=== PATIENT | female | born 1980 | race American Indian/Alaskan Native ===

== ENCOUNTER 2018-09-30 10:56 | Emergency (ER) | payer BC ==
--- NOTE | 2018-09-30 11:23 | Emergency Department Report ---
ED Female HPI - General Chief complaint: Urogenital-Female Stated complaint: 8WKS /SPOTTING Time Seen by Provider: 09/30/18 11:17 Source: patient, family Mode of arrival: Ambulatory Limitations: Language Barrier - History of Present Illness Initial comments: PT IS A 39 YO WOMAN WHO HAD A POS HOME PREG TEST NOW WITH VAGINAL BLEEDING. LMP WAS 11-23 TREATED RECENTLY FOR UTI MD Complaint: vaginal bleeding -: Sudden Are you Now?: Yes Associated Symptoms: vaginal bleeding - Related Data Sexually active: Yes Previous Rx's Medication Instructions Recorded Last Taken Type Polyethylene Glycol 3350 [Miralax 17 gm PO QDAY 7 Days #7 packet 07/11/18 Unknown Rx 3350] Allergies Allergy/AdvReac Type Severity Reaction Status Date / Time No Known Allergies Allergy Unverified 07/11/18 11:17 ED Review of Systems ROS: Stated complaint: 8WKS /SPOTTING Other details as noted in HPI Comment: All other systems reviewed and negative Constitutional: denies: chills Eyes: denies: eye pain ENT: denies: ear pain Respiratory: denies: cough Cardiovascular: denies: palpitations Endocrine: denies: excessive sweating Gastrointestinal: as per HPI, nausea. denies: abdominal pain, vomiting Genitourinary: as per HPI, abnormal menses. denies: urgency, dysuria, frequency, hematuria, discharge Musculoskeletal: denies: as per HPI, back pain Skin: denies: rash Neurological: denies: headache Psychiatric: denies: anxiety Hematological/Lymphatic: denies: easy bleeding ED Past Medical Hx - Past Medical History Previous Medical History?: Yes Hx Hypertension: Yes (hx, but no longer has per pt) - Surgical History Past Surgical History?: No - Family History Family history: no significant - Social History Smoking Status: Never Smoker Substance Use Type: None - Medications Home Medications: Home Medications Medication Instructions Recorded Confirmed Last Taken Type Polyethylene Glycol 3350 [Miralax 17 gm PO QDAY 7 Days #7 packet 07/11/18 Unknown Rx 3350] ED Physical Exam - General Limitations: Language Barrier General appearance: alert - Head Head exam: Present: atraumatic - Eye Eye exam: Present: normal appearance, PERRL Pupils: Present: normal accommodation - ENT ENT exam: Present: mucous membranes moist - Neck Neck exam: Present: normal inspection, full ROM - Respiratory Respiratory exam: Present: normal lung sounds bilaterally - Cardiovascular Cardiovascular Exam: Present: regular rate - GI/Abdominal GI/Abdominal exam: Present: soft, normal bowel sounds - Rectal Rectal exam: Present: deferred - Extremities Exam Extremities exam: Present: normal inspection, full ROM - Back Exam Back exam: Present: normal inspection. Absent: CVA tenderness (R), CVA tenderness (L) - Neurological Exam Neurological exam: Present: alert, oriented X3 - Psychiatric Psychiatric exam: Present: normal affect, normal mood - Skin Skin exam: Present: warm, dry, intact ED Course Vital Signs 09/30/18 09/30/18 11:00 14:23 Temperature 98.9 F 98.2 F Pulse Rate 78 82 Respiratory 18 16 Rate Blood Pressure 110/60 Blood Pressure 114/72 [Right] O2 Sat by Pulse 100 100 Oximetry ED Medical Decision Making - Lab Data Result diagrams: 09/30/18 12:02 09/30/18 12:02 - Radiology Data Radiology results: report reviewed, image reviewed - Medical Decision Making LABS NOTED UTI STILL PRESENT - ON MACROBID; NO CVA TENDERNESS, NO FEVER HCG NOTED US NOTED DISCUSSED WITH PT AND THEY WILL FOLLOW UP WITH OBGYN WITHIN 48 HOURS VSS ON DC Labs 09/30/18 09/30/18 09/30/18 11:25 12:02 12:02 WBC 4.8 RBC 3.95 Hgb 11.7 Hct 35.2 MCV 89 MCH 30 MCHC 33 RDW 14.9 Plt Count 280 Sodium 140 Potassium 3.9 Chloride 104.1 Carbon Dioxide 22 Anion Gap 18 BUN 9 Creatinine 0.5 L Estimated GFR > 60 BUN/Creatinine Ratio 18 Glucose 91 Calcium 9.4 HCG, Quant Urine Color [place] Urine Turbidity Slightly-cloudy Urine pH 5.0 Ur Specific [place] 1.029 Urine Protein 100 mg/dl Urine Glucose (UA) Neg Urine Ketones Tr Urine Blood Lg Urine Nitrite Neg Urine Bilirubin Neg Urine Urobilinogen 2.0 Ur Leukocyte Esterase Tr Urine WBC (Auto) 25.0 H Urine RBC (Auto) > 182.0 U Epithel Cells (Auto) 7.0 Urine Bacteria (Auto) 1+ Urine Mucus 3+ Urine HCG, Qual Positive A Blood Type 09/30/18 09/30/18 12:02 12:02 WBC RBC Hgb Hct MCV MCH MCHC RDW Plt Count Sodium Potassium Chloride Carbon Dioxide Anion Gap BUN Creatinine Estimated GFR BUN/Creatinine Ratio Glucose Calcium HCG, Quant 81331 H Urine Color Urine Turbidity Urine pH Ur Specific [place] Urine Protein Urine Glucose (UA) Urine Ketones Urine Blood Urine Nitrite Urine Bilirubin Urine Urobilinogen Ur Leukocyte Esterase Urine WBC (Auto) Urine RBC (Auto) U Epithel Cells (Auto) Urine Bacteria (Auto) Urine Mucus Urine HCG, Qual Blood Type AB POSITIVE - Differential Diagnosis RO AB; RO UTI Critical care attestation.: If time is entered above; I have spent that time in minutes in the direct care of this critically ill patient, excluding procedure time. ED Disposition Clinical Impression: Threatened , UTI (urinary tract infection) Disposition: TO HOME OR SELFCARE Is pt being admited?: No Does the pt Need Aspirin: No Condition: Stable Instructions: Threatened Miscarriage (ED) Additional Instructions: PELVIC REST FOLLOW UP WITH OBGYN WITHIN 49 HOURS FOR REPEAT LAB WORK LET THEM KNOW YOU WERE HERE AND THEY CAN CALL FOR RECORDS HCG [id number] TODAY HYDRATE WELL WITH WATER TYLENOL FOR PAIN ACTIVITY TOLERATED VITAMIN CONTINUE YOUR MACROBID MAKE SURE YOUR OB KNOWS THAT YOU ALSO HAD A RECENT URINARY TRACT INFECTION DIET TOLERATED Referrals: PRIMARY CAREMD [Primary Care Provider] - 3-5 Days JH VALLE MD [Staff Physician] - 3-5 Days Time of Disposition: 13:56
[2018-09-30 11:58] LABS: Bacteria,Urine 1+ /HPF (Negative); Bilirubin,Urine NEG (Negative); Blood,Urine LG (Negative); Color,Urine Amber (Yellow); Mucus,Urine 3+ /HPF
[2018-09-30 12:00] LABS: HCG Qualitative,Urine Positive (Negative)
[2018-09-30 12:01] LABS: RBC,Urine > 182.0 /HPF (0.0-6.0)
[2018-09-30 12:16] LABS: Hematocrit 35.2 % (30.3-42.9); Hemoglobin 11.7 gm/dl (10.1-14.3); Mean Corpuscular HGB Conc 33 % (30-34); Mean Corpuscular Volume 89 fl (79-97); Platelet Count 280 K/mm3 (140-440); Red Blood Count 3.95 M/mm3 (3.65-5.03); Red Cell Distribution Width 14.9 % (13.2-15.2)
[2018-09-30 12:44] LABS: BUN/Creatinine Ratio 18; Blood Urea Nitrogen 9 mg/dL (7-17); Calcium 9.4 mg/dL (8.4-10.2); Hemolysis Index 3
--- NOTE | 2018-09-30 14:07 | Ultrasound Report ---
ULTRASOUND OB LESS THAN 14 WEEKS FETUS ULTRASOUND OB TRANSVAGINAL History: Vaginal bleeding during Technique: Transabdominal and transvaginal ultrasound images. Findings: The uterus measures 9 x 6 x 6 cm. No uterine mass is identified. An intrauterine gestational sac containing a pole and yolk sac is identified. No heart rate could be detected. [place]-rump length correlates with a 7 week 0 day . A small subchorionic hemorrhage is noted along the right lateral border of the gestational sac. The ovaries are normal size, contour and echotexture. No pelvic fluid collection. Impression: demise. Small subchorionic hemorrhage.
[2018-09-30 14:24] VITALS: BP 114/72
== END 2018-09-30 14:23 | disposition home or self-care (01) ==
LOC: ED 10:56
DX: O20.0 Threatened abortion (principal); Z3A.01 Less than 8 weeks gestation of pregnancy
CPT/HCPCS: 36415; 76801; 76817; 80048; 81001; 81025; 84702; 85027; 86900; 86901

== ENCOUNTER 2018-10-09 11:33 | Day surgery (SDC) | payer BC ==
--- NOTE | 2018-10-09 12:04 | Short Stay Summary ---
Short Stay Documentation Date of service: 10/09/18 Narrative H&P: Pt is a 38yo BF LMP 08/08/18 presents for a D&C due to IUFD @ 7 weeks with subchorionic hemorrhage. Pt complains of vaginal bleeding. - History Principal diagnosis: IUFD @ 7 weeks H&P: obtained from office Past Medical History: No medical history Past Surgical History: No surgical history Social history: no significant social history, - Allergies and Medications Current Medications: Allergies No Known Allergies Allergy (Unverified 10/08/18 15:36) Home Medications Medication Instructions Recorded Confirmed Last Taken Type Acetaminophen [Tylenol] 650 mg PO Q4H PRN 10/08/18 10/08/18 Unknown History - Physical exam General appearance: no acute distress Integumentary: no rash HEENT: Atraumatic Lungs: Clear to auscultation Heart: Regular rate Gastrointestinal: normal Female Genitourinary: deferred Rectal Exam: deferred Extremities: no ischemia Neurological: Normal gait, Normal speech - Brief post op/procedure progress note Date of procedure: 10/09/18 Pre-op diagnosis: 1. IUFD at 7 weeks 2. Missed Post-op diagnosis: same Procedure: Dilatation and curettage Anesthesia: MAC Findings: An 8-10 week size uterus with moderate amounts of products of conception Surgeon: JH VALLE Estimated blood loss: 50-100ml Pathology: list (POC) Specimen disposition: to lab Condition: stable - Hospital course Hospital course: Unremarkable. - Disposition Condition at discharge: Good Disposition: DC-01 TO HOME OR SELFCARE - Discharge Diagnoses (1) IUFD at less than 20 weeks of gestation Status: Resolved (2) Missed Status: Resolved Short Stay Discharge Plan Activity: no restrictions Diet: regular Follow up with: PRIMARY CAREMD [Primary Care Provider] - 7 Days JH VALLE MD [Staff Physician] - 14 Days Prescriptions: Doxycycline Hyclate [Vibramycin] 100 mg PO BID #14 capsule Ibuprofen [Motrin] 600 mg PO Q8H PRN #30 tablet PRN Reason: Pain Methylergonovine [Methergine] 0.2 mg PO Q8HR #6 tablet
--- NOTE | 2018-10-09 12:56 | Anesthesia Consultation ---
Anesthesia Consult and Med Hx Date of service: 10/09/18 - Airway Anesthetic Teeth Evaluation: Good ROM Head & Neck: Adequate Mental/Hyoid Distance: Adequate Mallampati Class: Class III Intubation Access Assessment: Possibly Difficult - Pulmonary Exam CTA: Yes - Cardiac Exam Cardiac Exam: RRR - Pre-Operative Health Status ASA Pre-Surgery Classification: ASA2 Proposed Anesthetic Plan: General - Pulmonary Hx Smoking: No Hx Asthma: No Hx Respiratory Symptoms: No - Cardiovascular System Hx Hypertension: Yes (occasional elevated BP, no formal diagnosis or meds) Hx Heart Attack/AMI: No Hx Percutaneous Transluminal Coronary Angioplasty (PTCA): No - Central Nervous System Hx Seizures: No CVA: No - Gastrointestinal Hx Gastroesophageal Reflux Disease: No - Endocrine Hx Renal Disease: No Hx Liver Disease: No Hx Insulin Dependent Diabetes: No Hx Non-Insulin Dependent Diabetes: No Hx Thyroid Disease: No - Hematic Hx Anemia: Yes - Additional Comments Anesthesia Medical History Comments: 8wk IUP spontaneous . No prior GA. No FHx anesthetic complications.
[2018-10-09] MEDS ORDERED: SUBLIMAZE IV PRN (12:57)
--- NOTE | 2018-10-09 12:57 | Anesthesia Day of Surgery ---
Anesthesia Day of Surgery - Day of Surgery Patient Examined: Yes Patient H&P Reviewed: Yes Patient is NPO: Yes
[2018-10-09] MEDS ORDERED: ANCEF/STERILE WATER 2 GM/20 ML 2 GM/20 ML SYRINGE IV NR (13:00)
[2018-10-09] MEDS ORDERED: LACTATED RINGERS 1,000 ML IV SCH (13:00)
[2018-10-09] MEDS ORDERED: VERSED IV ONE (13:00)
[2018-10-09] MEDS ORDERED: SUBLIMAZE ONE (13:11)
[2018-10-09] MEDS ORDERED: ZOFRAN ONE (13:11)
[2018-10-09] MEDS ORDERED: DECADRON ONE (13:11)
[2018-10-09] MEDS ORDERED: XYLOCAINE CARDIAC IV ONE (13:11)
[2018-10-09] MEDS ORDERED: DIPRIVAN 10 MG/ML IV ONE (13:11)
[2018-10-09] MEDS ORDERED: NACL 0.9% IR ONE (13:12)
[2018-10-09 13:42] LABS: Hemoglobin 11.6 gm/dl (10.1-14.3)
--- NOTE | 2018-10-09 13:56 | Operative Report ---
Operative Report Operative Report: PREOPERATIVE DIAGNOSIS: 1. Intrauterine demise at 7 weeks 2. Missed POSTOPERATIVE DIAGNOSIS: Same OPERATIVE PROCEDURE: Dilatation and curettage. SURGEON: Carlos Carter MD ANESTHESIA: Gen. mask ANESTHESIOLOGIST: Dr. Espana ESTIMATED BLOOD LOSS: 50 mL FINDINGS: An 8-10 week size uterus with moderate amounts of products of conception COMPLICATIONS: None COUNTS: Correct x3. PROCEDURE: After the patient was correctly identified as the patient, and after general anesthesia was administered, the patient was prepped and draped in the usual sterile fashion and placed in dorsal lithotomy position. First, the bladder was emptied using a straight catheter. Next, a speculum was placed in the vaginal vault and the anterior lip of the cervix was grasped using a single- tooth tenaculum. The uterus was sounded to 10 cm. The cervical os was sequentially dilated, and a 9 mm vaccurette was used to suction blood and products of conception from the uterine cavity. After all the products of conception were removed, the procedure was considered complete. All instruments were removed from the vagina. The patient tolerated the procedure well and was transferred to the recovery room in stable condition.
--- NOTE | 2018-10-09 14:40 | Post Anesthesia Evaluation ---
- Post Anesthesia Evaluation Patient Participated: Yes Airway Patent: Yes Stable Respiratory Function: Yes Nausea/Vomiting: No Temp > 96.8F: Yes Pain Manageable: Yes Adequeate Hydration: Yes Anesthesia Complications: No
[2018-10-09 15:41] VITALS: BP 131/85
== END 2018-10-09 15:40 | disposition home or self-care (01) ==
LOC: OR 11:33
PROVIDERS: ATTEND Obstetrics & Gynecology
DX: O02.1 Missed abortion (principal); I10 Essential (primary) hypertension; Z3A.01 Less than 8 weeks gestation of pregnancy; Z79.899 Other long term (current) drug therapy; Z87.440 Personal history of urinary (tract) infections; Z86.2 Personal history of diseases of the blood and blood-forming organs and certain disorders involving the immune mechanism
CPT/HCPCS: 36415; 59820; 85014; 85018; 86900; 86901; 88305; J0690; J1100; J2001; J2250; J2405; J2704; J3010; J7120

== ENCOUNTER 2019-02-08 16:53 | Emergency (ER) | payer BC ==
[2019-02-08 20:08] LABS: Hematocrit 32.4 % (30.3-42.9); Hemoglobin 10.8 gm/dl (10.1-14.3); Mean Corpuscular HGB Conc 34 % (30-34); Mean Corpuscular Volume 90 fl (79-97); Platelet Count 276 K/mm3 (140-440); Red Blood Count 3.61 M/mm3 (3.65-5.03); Red Cell Distribution Width 14.7 % (13.2-15.2)
[2019-02-08 20:16] LABS: BUN/Creatinine Ratio 25; Blood Urea Nitrogen 10 mg/dL (7-17); Calcium 9.3 mg/dL (8.4-10.2); Hemolysis Index 3
--- NOTE | 2019-02-08 20:16 | Emergency Department Report ---
ED Female HPI - General Chief complaint: Urogenital-Female Stated complaint: ISSUES Time Seen by Provider: 02/08/19 19:50 Source: patient Mode of arrival: Ambulatory Limitations: Language Barrier - History of Present Illness Initial comments: Pt is a 38 yo female who presents to the ED with c/o surapubic pain that began yesterday. she states she has been having intermittent episodes of pain. THe patient denies any N/V, dysuria, or vaginal bleeding. she was evaluated in the ED on 01/29 and had an US at that time which showed an IUP at 6 weeks gestation. Pt is concerned that "she is not feeling the baby move." Advised pt that is most likely too early at this stage to have movement. /P:1/A:1 no pmhx. OUTDOOR PURSUITS INSTRUCTOR: DR. David Carter. pt has not started taking a vitamin. translated by patients . - Related Data Home Medications Medication Instructions Recorded Confirmed Last Taken Acetaminophen [Tylenol] 650 mg PO Q4H PRN 10/08/18 10/08/18 Unknown Previous Rx's Medication Instructions Recorded Last Taken Type Doxycycline Hyclate [Vibramycin] 100 mg PO BID #14 capsule 10/09/18 Unknown Rx Ibuprofen [Motrin] 600 mg PO Q8H PRN #30 tablet 10/09/18 Unknown Rx Methylergonovine [Methergine] 0.2 mg PO Q8HR #6 tablet 10/09/18 Unknown Rx Nitrofurantoin [place]/M-Cryst 100 mg PO Q12HR #14 capsule 01/29/19 Unknown Rx [Macrobid CAP] Ondansetron [Zofran Odt] 4 mg PO Q8HR #20 tab.rapdis 01/29/19 Unknown Rx Allergies Allergy/AdvReac Type Severity Reaction Status Date / Time No Known Allergies Allergy Unverified 10/08/18 15:36 ED Review of Systems ROS: Stated complaint: ISSUES Other details as noted in HPI Comment: All other systems reviewed and negative ED Past Medical Hx - Past Medical History Hx Hypertension: Yes (occasional elevated BP, no formal diagnosis or meds) Hx Heart Attack/AMI: No Hx Liver Disease: No Hx Renal Disease: No Hx Seizures: No Hx Asthma: No - Surgical History Past Surgical History?: No - Social History Smoking Status: Never Smoker - Medications Home Medications: Home Medications Medication Instructions Recorded Confirmed Last Taken Type Acetaminophen [Tylenol] 650 mg PO Q4H PRN 10/08/18 10/08/18 Unknown History Doxycycline Hyclate [Vibramycin] 100 mg PO BID #14 capsule 10/09/18 Unknown Rx Ibuprofen [Motrin] 600 mg PO Q8H PRN #30 tablet 10/09/18 Unknown Rx Methylergonovine [Methergine] 0.2 mg PO Q8HR #6 tablet 10/09/18 Unknown Rx Nitrofurantoin [place]/M-Cryst 100 mg PO Q12HR #14 capsule 01/29/19 Unknown Rx [Macrobid CAP] Ondansetron [Zofran Odt] 4 mg PO Q8HR #20 tab.rapdis 01/29/19 Unknown Rx ED Physical Exam - General Limitations: Language Barrier General appearance: alert, in no apparent distress - Head Head exam: Present: atraumatic, normocephalic - Eye Eye exam: Present: normal appearance, PERRL - ENT ENT exam: Present: mucous membranes moist - Respiratory Respiratory exam: Present: normal lung sounds bilaterally. Absent: respiratory distress, wheezes, rales, rhonchi, stridor, chest wall tenderness, accessory muscle use, decreased breath sounds, prolonged expiratory - Cardiovascular Cardiovascular Exam: Present: regular rate, normal rhythm, normal heart sounds. Absent: systolic murmur, diastolic murmur, rubs, gallop - GI/Abdominal GI/Abdominal exam: Present: soft, normal bowel sounds, other (gravid abdomen). Absent: tenderness, guarding, rebound, rigid - Back Exam Back exam: Absent: CVA tenderness (R), CVA tenderness (L) - Neurological Exam Neurological exam: Present: alert, oriented X3 - Psychiatric Psychiatric exam: Present: normal affect, normal mood - Skin Skin exam: Present: warm, dry, intact ED Course Vital Signs 02/08/19 02/08/19 02/08/19 19:50 20:03 22:25 Temperature 98.2 F 98.3 F Pulse Rate 76 70 Respiratory 18 20 16 Rate Blood Pressure 127/79 Blood Pressure 135/79 [Right] O2 Sat by Pulse 100 100 100 Oximetry ED Medical Decision Making - Lab Data Result diagrams: 02/08/19 19:48 02/08/19 19:48 Lab Results 02/08/19 02/08/19 02/08/19 Range/Units 19:41 19:48 19:48 WBC 5.4 (4.5-11.0) K/mm3 RBC 3.61 L (3.65-5.03) M/mm3 Hgb 10.8 (10.1-14.3) gm/dl Hct 32.4 (30.3-42.9) % MCV 90 (79-97) fl MCH 30 (28-32) pg MCHC 34 (30-34) % RDW 14.7 (13.2-15.2) % Plt Count 276 (140-440) K/mm3 Sodium 135 L (137-145) mmol/L Potassium 3.2 L (3.6-5.0) mmol/L Chloride 101.7 (98-107) mmol/L Carbon Dioxide 22 (22-30) mmol/L Anion Gap 15 mmol/L BUN 10 (7-17) mg/dL Creatinine 0.4 L (0.7-1.2) mg/dL Estimated GFR > 60 ml/min BUN/Creatinine Ratio 25 % Glucose 79 (65-100) mg/dL Calcium 9.3 (8.4-10.2) mg/dL HCG, Quant (0-4) mIU/mL Urine Color Yellow (Yellow) Urine Turbidity Slightly-cloudy (Clear) Urine pH 5.0 (5.0-7.0) Ur Specific [place] 1.026 (1.003-1.030) Urine Protein <15 mg/dl (Negative) mg/dL Urine Glucose (UA) Neg (Negative) mg/dL Urine Ketones 80 (Negative) mg/dL Urine Blood Mod (Negative) Urine Nitrite Neg (Negative) Urine Bilirubin Neg (Negative) Urine Urobilinogen < 2.0 (<2.0) mg/dL Ur Leukocyte Esterase Neg (Negative) Urine WBC (Auto) 2.0 (0.0-6.0) /HPF Urine RBC (Auto) 2.0 (0.0-6.0) /HPF U Epithel Cells (Auto) 3.0 (0-13.0) /HPF Urine Mucus Few /HPF 02/08/19 Range/Units 19:48 WBC (4.5-11.0) K/mm3 RBC (3.65-5.03) M/mm3 Hgb (10.1-14.3) gm/dl Hct (30.3-42.9) % MCV (79-97) fl MCH (28-32) pg MCHC (30-34) % RDW (13.2-15.2) % Plt Count (140-440) K/mm3 Sodium (137-145) mmol/L Potassium (3.6-5.0) mmol/L Chloride (98-107) mmol/L Carbon Dioxide (22-30) mmol/L Anion Gap mmol/L BUN (7-17) mg/dL Creatinine (0.7-1.2) mg/dL Estimated GFR ml/min BUN/Creatinine Ratio % Glucose (65-100) mg/dL Calcium (8.4-10.2) mg/dL HCG, Quant 33655 H (0-4) mIU/mL Urine Color (Yellow) Urine Turbidity (Clear) Urine pH (5.0-7.0) Ur Specific [place] (1.003-1.030) Urine Protein (Negative) mg/dL Urine Glucose (UA) (Negative) mg/dL Urine Ketones (Negative) mg/dL Urine Blood (Negative) Urine Nitrite (Negative) Urine Bilirubin (Negative) Urine Urobilinogen (<2.0) mg/dL Ur Leukocyte Esterase (Negative) Urine WBC (Auto) (0.0-6.0) /HPF Urine RBC (Auto) (0.0-6.0) /HPF U Epithel Cells (Auto) (0-13.0) /HPF Urine Mucus /HPF - Radiology Data Radiology results: report reviewed PROCEDURE: US OB <= 14 WEEKS FETUS TECHNIQUE: Real-time transabdominal sonography of the uterus, placenta, amniotic fluid, adnexa, and fetus was performed with image documentation. Measurements were obtained to determine age/size. M-mode Doppler was used to document heartbeat. ADDITIONAL GESTATION: None. HISTORY: Pelvic Pain COMPARISONS: None . FINDINGS: CRL: 23.6 mm, which corresponds to a gestational age of: 9 weeks, 0 days. Yolk Sac: Appropriate for gestational age. . Embryonic Cardiac Activity: 169 bpm, regular . Gestational Sac: Size and shape are appropriate for gestational age Right Ovary: Normal . Measures 2.6 x 2.1 x 3.1 cm Left Ovary: Normal . Measures 3.2 x 1.5 x 2.5 cm Estimated delivery date: 09/13/2019 . Uterus and adnexa: Normal. IMPRESSION: Single live intrauterine gestation at approximately 9 weeks and 0 days . EDC by US : 09/13/2019 This document is electronically signed by Rusty Booth MD., Feb 08 2019 09:28:12 PM ET - Medical Decision Making Pt is a 38 yo female who presents to the ED with c/o surapubic pain that began yesterday. she states she has been having intermittent episodes of pain. THe patient denies any N/V, dysuria, or vaginal bleeding. she was evaluated in the ED on 01/29 and had an US at that time which showed an IUP at 6 weeks gestation. Pt is concerned that "she is not feeling the baby move." Advised pt that is most likely too early at this stage to have movement. /P:1/A:1 no pmhx. OUTDOOR PURSUITS INSTRUCTOR: DR. David Carter. pt has not started taking a vitamin. translated by patients . VSS. labs WNL. UA is normal. small amount of ketones in urine pt given 1L of normal saline for mild dehydration. advised to drink plenty of water. discussed to begin taking an OTC vitamin. US shows Single live intrauterine gestation at approximately 9 weeks and 0 days . EDC by US : 09/13/2019. Advised pt to follow up with her OUTDOOR PURSUITS INSTRUCTOR in the next 2-3 days. return to the ED for any new or worsening symptoms. Critical care attestation.: If time is entered above; I have spent that time in minutes in the direct care of this critically ill patient, excluding procedure time. ED Disposition Clinical Impression: Qualifiers: Weeks of gestation: 9 weeks Qualified Code(s): Z3A.09 - 9 weeks gestation of Disposition: DC-01 TO HOME OR SELFCARE Is pt being admited?: No Does the pt Need Aspirin: No Condition: Stable Instructions: (ED) Additional Instructions: Please follow up with your OUTDOOR PURSUITS INSTRUCTOR in the next 2-3 days. Please take an over the counter vitamin daily. Drink lots of water. Return to the emergency room for any new or worsening symptoms. Referrals: JH CARTER MD [Primary Care Provider] - 2-3 Days Time of Disposition: 21:33 Print Language: MAORI
[2019-02-08 20:49] LABS: Bilirubin,Urine NEG (Negative); Blood,Urine MOD (Negative); Color,Urine Yellow (Yellow); Mucus,Urine FEW /HPF; Protein,Urine <15 mg/dL mg/dL (Negative); Urobilinogen,Urine < 2.0 mg/dL (<2.0)
--- NOTE | 2019-02-08 21:30 | Ultrasound Report ---
PROCEDURE: US OB <= 14 WEEKS FETUS TECHNIQUE: Real-time transabdominal sonography of the uterus, placenta, amniotic fluid, adnexa, and fetus was performed with image documentation. Measurements were obtained to determine age/size. M-mode Doppler was used to document heartbeat. ADDITIONAL GESTATION: None. HISTORY: Pelvic Pain COMPARISONS: None . FINDINGS: CRL: 23.6 mm, which corresponds to a gestational age of: 9 weeks, 0 days. Yolk Sac: Appropriate for gestational age. . Embryonic Cardiac Activity: 169 bpm, regular . Gestational Sac: Size and shape are appropriate for gestational age Right Ovary: Normal . Measures 2.6 x 2.1 x 3.1 cm Left Ovary: Normal . Measures 3.2 x 1.5 x 2.5 cm Estimated delivery date: 09/13/2019 . Uterus and adnexa: Normal. IMPRESSION: Single live intrauterine gestation at approximately 9 weeks and 0 days . EDC by US : This document is electronically signed by Rusty Booth MD., Feb 08 2019 09:28:12 PM ET
[2019-02-08] MEDS ORDERED: NACL 0.9% 1000 ML 1,000 ML IV ONE (21:31)
[2019-02-08 22:26] VITALS: BP 135/79
== END 2019-02-08 23:24 | disposition home or self-care (01) ==
LOC: ED 16:53
DX: O26.891 Other specified pregnancy related conditions, first trimester (principal); O16.1 Unspecified maternal hypertension, first trimester; E86.0 Dehydration; Z3A.09 9 weeks gestation of pregnancy
CPT/HCPCS: 36415; 76801; 80048; 81001; 84702; 85027; 96360; 99284; J7030

== ENCOUNTER 2019-06-29 12:40 | Outpatient (CLI) | payer SELFPAY ==
[2019-06-29 13:18] VITALS: BP 121/77
[2019-06-29] MEDS ORDERED: LACTATED RINGERS 1,000 ML IV SCH (14:00)
[2019-06-29 14:19] LABS: Bacteria,Urine 1+ /HPF (Negative); Bilirubin,Urine NEG (Negative); Blood,Urine MOD (Negative); Color,Urine Yellow (Yellow); Mucus,Urine FEW /HPF; Protein,Urine <15 mg/dL mg/dL (Negative); Urobilinogen,Urine < 2.0 mg/dL (<2.0)
== END 2019-06-29 15:10 | disposition home or self-care (01) ==
LOC: TRG 12:40
PROVIDERS: ATTEND Obstetrics & Gynecology
DX: O26.893 Other specified pregnancy related conditions, third trimester (principal); Z3A.29 29 weeks gestation of pregnancy
CPT/HCPCS: 59025; 81001; 87086

== ENCOUNTER 2020-01-12 13:12 | Emergency (ER) | payer SELFPAY ==
--- NOTE | 2020-01-12 13:14 | Event Note ---
ED Screening Note ED Screening Note: speaks [place] see RN summary interpretor used no covid exposure headache and dizzy no cp or sob ambulatory to ER next of kin blood products ok bp elevated This initial assessment/diagnostic orders/clinical plan/treatment(s) is/are subject to change based on patients health status, clinical progression and re- assessment by fellow clinical providers in the ED. Further treatment and workup at subsequent clinical providers discretion. Patient/guardian urged not to elope from the ED as their condition may be serious if not clinically assessed and managed. Initial orders include: basic labs ua preg reeval in ACC with interpretor-- ? ct
[2020-01-12 13:19] VITALS: BP 166/107
[2020-01-12 14:26] LABS: Hematocrit 38.5 % (30.3-42.9); Hemoglobin 12.9 gm/dl (10.1-14.3); Mean Corpuscular HGB Conc 34 % (30-34); Mean Corpuscular Volume 88 fl (79-97); Platelet Count 319 K/mm3 (140-440); Red Blood Count 4.37 M/mm3 (3.65-5.03); Red Cell Distribution Width 14.2 % (13.2-15.2)
--- NOTE | 2020-01-12 15:23 | Emergency Department Report ---
ED ENT HPI - General Chief complaint: Nosebleed Stated complaint: DIZZY,HEADACHE,NOSE BLEED Time Seen by Provider: 01/12/20 13:14 Source: patient Mode of arrival: Ambulatory Limitations: Language Barrier (Translated by nurse Krzysztof Alva) - History of Present Illness Initial comments: 39-year-old -Iranian female who speaks Macedonian presents to the emergency room complaining of nosebleed that is been intermittent for months and started back last night. Patient admits to dizziness and headache. Patient denies any trauma or picking of the nose. Patient reports her headache is located in the front and back of the neck. Patient does report a history of headaches. Patient also reports a history of hypertension and was taking high blood pressure medication during her last which she delivered September 15, 2019. Since then patient has not been on any hypertensive medication. Currently patient does not have a primary care provider. Patient denies any shortness of breath chest pain or syncopal moment. Patient denies any worst headache of her life. It was noted that patient's blood pressure was 166/107 and a heart rate of 72 in triage. Patient reports her last menstrual period was 11/25/2019. MD complaint: epistaxis Onset/Timin -: month(s), Last night Location: nose Severity: mild Consistency: intermittent Context-Epistaxis: aspirin use (Ibuprofen) - Related Data Home Medications Medication Instructions Recorded Confirmed Last Taken Pnv Plus Multivit Tab 1 dose PO ONCE 06/29/19 06/29/19 06/29/19 Previous Rx's Medication Instructions Recorded Last Taken Type amLODIPine 5 mg PO DAILY #30 tab 01/12/20 Unknown Rx Allergies Allergy/AdvReac Type Severity Reaction Status Date / Time No Known Allergies Allergy Unverified 10/08/18 15:36 ED Dental HPI - General Chief complaint: Nosebleed Stated complaint: DIZZY,HEADACHE,NOSE BLEED Time Seen by Provider: 01/12/20 13:14 Source: patient Mode of arrival: Ambulatory Limitations: Language Barrier - Related Data Home Medications Medication Instructions Recorded Confirmed Last Taken Pnv Plus Multivit Tab 1 dose PO ONCE 06/29/19 06/29/19 06/29/19 Previous Rx's Medication Instructions Recorded Last Taken Type amLODIPine 5 mg PO DAILY #30 tab 01/12/20 Unknown Rx Allergies Allergy/AdvReac Type Severity Reaction Status Date / Time No Known Allergies Allergy Unverified 10/08/18 15:36 ED Review of Systems ROS: Stated complaint: DIZZY,HEADACHE,NOSE BLEED Other details as noted in HPI ED Past Medical Hx - Past Medical History Previous Medical History?: Yes Hx Hypertension: Yes (occasional elevated BP, no formal diagnosis or meds) Hx Heart Attack/AMI: No Hx Liver Disease: No Hx Renal Disease: No Hx Seizures: No Hx Asthma: No - Surgical History Past Surgical History?: No - Social History Smoking Status: Never Smoker - Medications Home Medications: Home Medications Medication Instructions Recorded Confirmed Last Taken Type Pnv Plus Multivit Tab 1 dose PO ONCE 06/29/19 06/29/19 06/29/19 History amLODIPine 5 mg PO DAILY #30 tab 01/12/20 Unknown Rx ED Physical Exam - General Limitations: Language Barrier General appearance: alert, in no apparent distress - Head Head exam: Present: atraumatic, normocephalic - Eye Eye exam: Present: normal appearance - Expanded ENT Exam Expanded Mouth exam: Present: normal external inspection, tongue normal Throat exam: Positive: normal inspection, other (Bilateral nares are patent with beet red turbinates that are boggy no bleeding appreciated) - Neck Neck exam: Present: normal inspection - Respiratory Respiratory exam: Present: normal lung sounds bilaterally. Absent: respiratory distress - Cardiovascular Cardiovascular Exam: Present: regular rate, normal rhythm. Absent: systolic murmur, diastolic murmur, rubs, gallop - GI/Abdominal GI/Abdominal exam: Present: soft, normal bowel sounds - Neurological Exam Neurological exam: Present: alert, oriented X3, CN II-XII intact, normal gait - Psychiatric Psychiatric exam: Present: normal affect, normal mood - Skin Skin exam: Present: warm, dry, intact, normal color. Absent: rash ED Course Vital Signs 01/12/20 13:16 Temperature 98.1 F Pulse Rate 72 Respiratory 16 Rate Blood Pressure 166/107 O2 Sat by Pulse 99 Oximetry ED Medical Decision Making - Lab Data Result diagrams: 01/12/20 13:42 01/12/20 13:39 - Medical Decision Making 39-year-old -Iranian female who speaks Macedonian presents to the emergency room complaining of nosebleed that is been intermittent for months and started back last night. Patient admits to dizziness and headache. Patient denies any trauma or picking of the nose. Patient reports her headache is located in the front and back of the neck. Patient does report a history of headaches. Patient also reports a history of hypertension and was taking high blood pressure medication during her last which she delivered September 15, 2019. Since then patient has not been on any hypertensive medication. Currently patient does not have a primary care provider. Patient denies any shortness of breath chest pain or syncopal moment. Patient denies any worst headache of her life. It was noted that patient's blood pressure was 166/107 and a heart rate of 72 in triage. Patient reports her last menstrual period was 11/25/2019. Pending labs Critical care attestation.: If time is entered above; I have spent that time in minutes in the direct care of this critically ill patient, excluding procedure time. ED Disposition Clinical Impression: Hypertension, Anterior epistaxis Disposition: DC-01 TO HOME OR SELFCARE Is pt being admited?: No Does the pt Need Aspirin: No Condition: Stable Instructions: Hypertension (ED), Epistaxis (ED) Additional Instructions: Please avoid using ibuprofen, Aleve, Motrin, naproxen as this makes your blood thinner and could cause more bleeding. Be sure to take your hypertensive medicine daily. Follow-up with a primary care provider or internal medicine provider. Leeanna vous plat viter dutiliser libuprofne, Aleve, Motrin, naproxne car alexia rend votre anticoagulant et pourrait causer plus de saignements. Assurez- vous de prendre votre mdecine hypertendue tous les jours. Suivi auprs dun fournisseur de soins primaires ou dun fournisseur de mdecine interne. Prescriptions: amLODIPine 5 mg PO DAILY #30 tab Referrals: PRIMARY MD ANGUS [Primary Care Provider] - 3-5 Days WILSON GUIDO MD [Staff Physician] - 3-5 Days
[2020-01-12 15:27] LABS: Alanine Aminotransferase 14 units/L (7-56); Albumin 4.6 g/dL (3.9-5); BUN/Creatinine Ratio 20; Blood Urea Nitrogen 12 mg/dL (7-17); Calcium 9.7 mg/dL (8.4-10.2); Hemolysis Index 1
[2020-01-12 16:11] LABS: Bacteria,Urine 1+ /HPF (Negative); Bilirubin,Urine NEG (Negative); Blood,Urine MOD (Negative); Color,Urine Straw (Yellow); HCG Qualitative,Urine Negative (Negative); Mucus,Urine FEW /HPF; Protein,Urine <15 mg/dL mg/dL (Negative); Urobilinogen,Urine < 2.0 mg/dL (<2.0)
== END 2020-01-12 16:39 | disposition home or self-care (01) ==
LOC: ED 13:12
DX: R04.0 Epistaxis (principal); I10 Essential (primary) hypertension; R42 Dizziness and giddiness; R51 Headache; Z79.899 Other long term (current) drug therapy
CPT/HCPCS: 36415; 80053; 81001; 81025; 85027; 93005; 99283

== ENCOUNTER 2021-05-29 08:20 | Emergency (ER) | payer SELFPAY ==
[2021-05-29 08:53] VITALS: BP 165/99
--- NOTE | 2021-05-29 10:23 | Emergency Department Report ---
ED Dizziness HPI - General Chief Complaint: Dizziness Stated Complaint: DIZZY,SORETHROAT,VOMITING, ACHING Time Seen by Provider: 05/29/21 10:16 Source: patient Mode of arrival: Ambulatory Limitations: No Limitations - History of Present Illness Initial Comments: This is a 40-year-old female that presents with dizziness, vomiting, sore throat for 1 week. Patient reports history of vertigo intermittently for the past year. Denies follow-up with PCP. Reports last time vomiting was 2 days ago and currently resolved. Reports last episode of dizziness was last night. She denies chest pain, shortness of breath, fever, chills, and weakness. MD Complaint: dizziness Onset/Timin -: week(s) Timing: gradual onset, intermittent Description: "room spinning" History of Same: Yes (1 year) History of Trauma: No Severity: mild Improves With: remaining still Worsens With: movement, position Associated Symptoms: denies: chest pain, cough, diaphoresis, fever/chills, loss of appetite, malaise, seizure, shortness of breath, syncope, weakness - Related Data Home Medications Medication Instructions Recorded Confirmed Last Taken Pnv Plus Multivit Tab 1 dose PO ONCE 06/29/19 06/29/19 06/29/19 Previous Rx's Medication Instructions Recorded Last Taken Type amLODIPine 5 mg PO DAILY #30 tab 01/12/20 Unknown Rx Meclizine [Antivert] 12.5 mg PO BID PRN #15 tablet 05/29/21 Unknown Rx Allergies Allergy/AdvReac Type Severity Reaction Status Date / Time No Known Allergies Allergy Unverified 10/08/18 15:36 ED Review of Systems ROS: Stated complaint: DIZZY,SORETHROAT,VOMITING, ACHING Other details as noted in HPI Constitutional: denies: chills, fever ENT: denies: ear pain Cardiovascular: denies: chest pain, palpitations Gastrointestinal: denies: abdominal pain, nausea, diarrhea Skin: denies: rash, lesions Neurological: vertigo. denies: headache, weakness, paresthesias Psychiatric: denies: anxiety, depression ED Past Medical Hx - Past Medical History Previous Medical History?: Yes Hx Hypertension: Yes (occasional elevated BP, no formal diagnosis or meds) Hx Heart Attack/AMI: No Hx Liver Disease: No Hx Renal Disease: No Hx Seizures: No Hx Asthma: No - Surgical History Past Surgical History?: No - Social History Smoking Status: Never Smoker - Medications Home Medications: Home Medications Medication Instructions Recorded Confirmed Last Taken Type Pnv Plus Multivit Tab 1 dose PO ONCE 06/29/19 06/29/19 06/29/19 History amLODIPine 5 mg PO DAILY #30 tab 01/12/20 Unknown Rx Meclizine [Antivert] 12.5 mg PO BID PRN #15 tablet 05/29/21 Unknown Rx ED Physical Exam - General Limitations: No Limitations General appearance: alert, in no apparent distress - Head Head exam: Present: atraumatic, normocephalic - Eye Eye exam: Present: normal appearance, EOMI. Absent: nystagmus Pupils: Present: normal accommodation - ENT ENT exam: Present: normal orophraynx, mucous membranes moist, TM's normal bilaterally - Respiratory Respiratory exam: Present: normal lung sounds bilaterally. Absent: respiratory distress, wheezes, rales - Cardiovascular Cardiovascular Exam: Present: regular rate, normal rhythm. Absent: systolic murmur, diastolic murmur, rubs, gallop - GI/Abdominal GI/Abdominal exam: Present: soft, normal bowel sounds. Absent: distended, tenderness, guarding, rebound, rigid - Neurological Exam Neurological exam: Present: alert, oriented X3, normal gait - Psychiatric Psychiatric exam: Present: normal affect, normal mood - Skin Skin exam: Present: warm, dry, intact, normal color. Absent: rash ED Course Vital Signs 05/29/21 08:51 Temperature 98.3 F Pulse Rate 65 Respiratory 18 Rate Blood Pressure 165/99 [Right] O2 Sat by Pulse 100 Oximetry ED Medical Decision Making - Lab Data Vital Signs 05/29/21 08:51 Temperature 98.3 F Pulse Rate 65 Respiratory 18 Rate Blood Pressure 165/99 [Right] O2 Sat by Pulse 100 Oximetry - EKG Data -: No EKG Interpreted by Me (EKG interpreted by attending) EKG shows normal: sinus rhythm Rate: normal - Medical Decision Making 40 y.o. female that presents with dizziness, sore throat, and vomiting 2 days ago. Symptoms resolved today. Denies SOB, palpations, chest pain, abdominal pain, diarrhea, fever, or dyspnea. Vitals stable. EKG normal sinus rhythm and interpreted by attending. Based on history, exam, and findings, presentation not consistent with [facility] infection, cerebral hemorrhage, infarction, trauma, or complex migraine. Prior to discharge symptoms are controlled and patient is well-appearing. Referrals given for PCP follow-up. Discharged home stable. Follow up with PCP in 24-48 hours. Given strict return instructions. Critical care attestation.: If time is entered above; I have spent that time in minutes in the direct care of this critically ill patient, excluding procedure time. ED Disposition Clinical Impression: Vertigo Disposition: HOME / SELF CARE / HOMELESS Is pt being admited?: No Condition: Stable Instructions: Dizziness Additional Instructions: Slowly transition from sitting to standing. Prescriptions: Meclizine [Antivert] 12.5 mg PO BID PRN #15 tablet PRN Reason: Vertigo Referrals: WILSON GUIDO MD [Staff Physician] - 3-5 Days PRIMARY CAREMD [Primary Care Provider] - 3-5 Days [facility] [Outside] - 3-5 Days [facility] [Provider Group] - 3-5 Days Forms: Work/School Release Form(ED) Time of Disposition: 10:27
--- NOTE | 2021-05-30 09:09 | Electrocardiograph Report ---
[facility] Test Date: 2021-05-29 Test Time: 08:57:39 Pat Name: KAT ESPINOZA Department: Room: Gender: F Design Agent: MIRIAM : 1980 Requested By: SHIMA LAWTON Order Number: [id number] Reading MD: Angelique Samano Measurements Intervals [place] Rate: 62 P: 43 NM: 169 QRS: 59 QRSD: 85 T: 54 QT: 425 QTc: 432 Interpretive Statements Sinus rhythm No previous ECG available for comparison Electronically Signed On 05-30-2021 9:08:43 EDT by Angelique Samano
== END 2021-05-29 11:04 | disposition home or self-care (01) ==
LOC: ED 08:20
DX: R42 Dizziness and giddiness (principal); I10 Essential (primary) hypertension
CPT/HCPCS: 93005; 99282